=== PATIENT | male | born 1970 | race Caucasian/White ===

== ENCOUNTER 2022-10-26 09:06 | Outpatient (CLI) | payer OTHER, SELFPAY | END 2022-10-26 09:07 | disposition home or self-care (01) | PROVIDERS: PCP Family Medicine; Visit Provider Orthopaedic Surgery Sports Medicine | DX: Z20.822 Contact with and (suspected) exposure to COVID-19 (principal); Z01.818 Encounter for other preprocedural examination | CPT/HCPCS: 36415; 86850; 86900; 86901 ==